=== PATIENT | male | born 1965 | race Caucasian/White ===

== ENCOUNTER → 2018-05-14 | Outpatient (CLI) | payer OTHER ==
[~2018-05-14] MED LIST: FENO54TA17 PO; HYDR-3307 PO; METH40TA3 PO; OMEP10CA4 PO
[2018-05-14 16:04] LABS: MICROSCOPIC NOT IND
== END | disposition home or self-care (01) ==
LOC: STAR 15:16
PROVIDERS: ATTEND Student in an Organized Health Care Education/Training Program
DX: Z01.818 Encounter for other preprocedural examination (principal); R31.0 Gross hematuria; F17.200 Nicotine dependence, unspecified, uncomplicated
CPT/HCPCS: 81003; 87086

== ENCOUNTER 2018-05-20 06:46 | Day surgery (SDC) | payer OTHER ==
[2018-05-14 15:01] VITALS: BP 138/97
[~2018-05-20] VITALS: Ht 193 cm; Wt 95.5 kg
[2018-05-20] MEDS ORDERED: LACTATED RINGERS 1,000 ML IV SCH (07:19)
[2018-05-20 08:26] LABS: AMPHETAMINE SCREEN, URINE Negative (Negative); BARBITURATE SCREEN, URINE Negative (Negative); BENZODIAZEPINE SCREEN, URINE Negative (Negative); CANNABINOID SCREEN, URINE Negative (Negative); COCAINE SCREEN, URINE Negative (Negative); METHADONE SCREEN, URINE Positive (Negative); OPIATE SCREEN, URINE Positive (Negative)
[2018-05-20] MEDS ORDERED: FENTANYL PF 100 MCG/2ML ONE ×4 (08:40→09:44)
[2018-05-20] MEDS ORDERED: MIDAZOLAM 1 MG/ML, 2ML ONE ×2 (08:40)
[2018-05-20] MEDS ORDERED: PROPOFOL 10 MG/ML, 20ML ONE ×2 (08:45→08:54)
[2018-05-20] MEDS ORDERED: LIDOCAINE-MPF 2% ,5ML ONE (08:45)
[2018-05-20] MEDS ORDERED: ONDANSETRON 2MG/ML, 2ML ONE (08:54)
[2018-05-20] MEDS ORDERED: DEXAMETHASONE 4 MG/ML, 1ML ONE (08:54)
[2018-05-20] MEDS ORDERED: CEFAZOLIN 1,000 MG ONE (08:54)
[2018-05-20] MEDS ORDERED: FENTANYL PF 100 MCG/2ML IV PRN (09:30)
[2018-05-20] MEDS ORDERED: PROMETHAZINE 25 MG/ML, 1ML IV PRN (09:30)
[2018-05-20] MEDS ORDERED: OXYcodone 5 MG/5 ML ORAL.SOL UDC PO PRN (09:30)
[2018-05-20] MEDS ORDERED: HYDROmorphone 1 MG/ML, 1ML IV PRN (09:30)
[2018-05-20] MEDS ORDERED: hydrALAzine 20 MG/ML, 1ML IV PRN (09:30)
[2018-05-20] MEDS ORDERED: HALOPERIDOL 5 MG/ML IV PRN (09:30)
[2018-05-20] MEDS ORDERED: MEPERIDINE/PF 25MG/0.5ML IVPush PRN (09:30)
[2018-05-20] MEDS ORDERED: ACETAMINOPHEN 325 MG TABLET PO PRN (09:30)
[2018-05-20] MEDS ORDERED: LORazepam 2 MG/ML, 1ML IVPush PRN (09:30)
[2018-05-20] MEDS ORDERED: LABETALOL 5MG/ML, 20ML IV PRN (09:30)
[2018-05-20] MEDS ORDERED: ACETAMINOPHEN 650 MG/20.3 ML UDC ONE (09:44)
[2018-05-20] MEDS ORDERED: OXYcodone 5 MG/5 ML ORAL.SOL UDC ONE (09:45)
[2018-05-20] MEDS ORDERED: OPIUM/BELLADONNA SUPP.RECT 16.2-30 MG ONE ×2 (10:08)
[2018-05-20] MEDS ORDERED: PHENAZOPYRIDINE 200 MG TABLET ONE (10:09)
[2018-05-20] MEDS ORDERED: PHENAZOPYRIDINE 200 MG TABLET PO STA (10:11)
[2018-05-20] MEDS ORDERED: OPIUM/BELLADONNA SUPP.RECT 16.2-60 MG PR STA (10:11)
[2018-05-20] MEDS ORDERED: PHENAZOPYRIDINE 200 MG TABLET PO ONE (10:30)
== END 2018-05-20 12:05 | disposition home or self-care (01) ==
LOC: OUT 06:46
PROVIDERS: ATTEND Student in an Organized Health Care Education/Training Program
DX: N35.819 Other urethral stricture, male, unspecified site (principal); K21.9 Gastro-esophageal reflux disease without esophagitis; F17.210 Nicotine dependence, cigarettes, uncomplicated; F11.10 Opioid abuse, uncomplicated; I10 Essential (primary) hypertension; Z79.899 Other long term (current) drug therapy; Z72.89 Other problems related to lifestyle; Z98.890 Other specified postprocedural states
CPT/HCPCS: 52276; 80307; C1726; C1769; J0690; J1100; J2250; J2405; J2704; J3010; J3490; J7120